=== PATIENT | male | born 1980 | race Hispanic/Latino ===

== ENCOUNTER 2017-12-13 20:01 | Observation (INO) | payer MEDICAID ==
[2017-12-13] MEDS ORDERED: Sodium Chloride 0.9% 2,000 ML IV STA (20:30)
[2017-12-13 20:49] LABS: BASO # 0.1 K/uL (0.0-0.2); BASO % 1.1 % (0.0-2.0); EOS # 0.1 K/uL (0.0-0.7); EOS % 0.9 % (0.0-4.0); HEMOGLOBIN 14.5 g/dL (12.0-18.0); LYMPH % 19.5 % (20.0-40.0); MEAN CORPUSCULAR HEMOGLOBIN 30.6 pg (27.0-31.0); MEAN CORPUSCULAR HGB CONC 33.7 g/dL (33.0-37.0); MEAN PLATELET VOLUME 7.4 fl (7.2-11.7); MONO # 0.5 K/uL (0.0-0.8); MONO % 5.2 % (0.0-10.0); NEUT # 7.5 K/uL (1.8-7.0); NEUT % 73.3 % (50.0-75.0); RBC 4.73 Mil/uL (4.40-5.90); RED CELL DISTRIBUTION WIDTH 13.9 % (11.5-14.5); WHITE BLOOD COUNT 10.2 K/uL (4.8-10.8)
--- NOTE | 2017-12-13 20:51 | ED PDOC ---
HPI: Seizure Time Seen by Provider: 12/13/17 20:14 Chief Complaint (Nursing): Seizure History Per: Patient History/Exam Limitations: no limitations Number Of Seizures: One Length Of Seizures (Duration): Seconds Quality Of Seizure: Generalized Additional History Per: Patient Additional Complaint(s): Hx of ETOH abuse presenting with seizure this morning, shaking, tremors, and decreased appetite. States he has been drinking daily for weeks, last drink was yesterday, states he normally drinks 750mL of vodka in addition to beers. States he's also taking gabapentin and Remeron as prescribed by his psychiatrist. States he went to [facility] this morning, received an IV dose of ativan as well as PO dose and states he was placed in a mcc in [place], but states that after he arrived in [place], he began having worsening of his tremors and felt as though his withdrawal symptoms were returning. Denies other substance usage. States he has not eaten anything in one week nor has he drank fluids. No suicidal or homicidal ideation. States this morning he may have bruised the L side of his face because he feels swelling. PMD: None Past Medical History Reviewed: Historical Data, Nursing Documentation, Vital Signs Vital Signs: Last Vital Signs Temp 98.7 F 12/13/17 20:05 Pulse 120 H 12/13/17 20:28 Resp 18 12/13/17 20:05 BP 132/75 12/13/17 20:28 Pulse Ox 96 12/13/17 20:05 - Medical History PMH: Anxiety, Depression, Seizures - Family History Family History: States: No Known Family Hx - Home Medications Home Medications: Ambulatory Orders Medication Instructions Recorded Baclofen [Lioresal] 10 mg PO BID 12/13/17 Gabapentin [Neurontin] 300 mg PO TID 12/13/17 Mirtazapine [Remeron] 15 mg PO HS 12/13/17 OXcarbazepine [Trileptal] 150 mg PO BID 12/13/17 - Allergies Allergies/Adverse Reactions: Allergies Allergy/AdvReac Type Severity Reaction Status Date / Time amoxicillin Allergy URTICARIA Verified 12/13/17 20:10 Review of Systems ROS Statement: Except As Marked, All Systems Reviewed And Found Negative Neurological: Positive for: Seizures Physical Exam - Reviewed Nursing Documentation Reviewed: Yes Vital Signs Reviewed: Yes - Physical Exam Appears: Positive for: Non-toxic, No Acute Distress. Negative for: Well (Dishev eled appearance) Head Exam: Positive for: ATRAUMATIC, NORMAL INSPECTION, NORMOCEPHALIC Skin: Positive for: Rash (Facial sun-samuels bilaterally) Eye Exam: Positive for: EOMI, Normal appearance, PERRL ENT: Positive for: Other (Tongue fasiculations, voice tremors) Neck: Positive for: Normal, Painless ROM, Supple. Negative for: Decreased ROM Cardiovascular/Chest: Positive for: Regular Rate, Rhythm Respiratory: Positive for: CNT, Normal Breath Sounds Gastrointestinal/Abdominal: Positive for: Normal Exam, Soft. Negative for: Tenderness Back: Positive for: Normal Inspection Extremity: Positive for: Normal ROM Neurologic/Psych: Positive for: Alert, toe pounder II-XII, Oriented, Other (Tremors of extremeties). Negative for: Motor/Sensory Deficits - Laboratory Results Result Diagrams: 12/13/17 20:36 12/13/17 20:36 - ECG ECG Rhythm: Positive for: Normal QRS, Normal ST Segment, Sinus Tachycardia Rate: 115 O2 Sat by Pulse Oximetry: 96 Pulse Ox Interpretation: Normal Medical Decision Making Medical Decision MakinPM Patient presenting with alcohol withdrawal symptoms --Patient currently actively withdrawing, tremulous, tachycardic --Patient profoundly dehydrated as well, will replete fluids, banana bag --Will give short and long acting benzos --Will consider OBS for further seizure activity 10PM --Patient still considerably tachycardic and tremulous --Will place in OBS Tele for further seizure activity and alcohol withdrawal monitoring --Head CT ordered --Case discussed with Dr. Bennett Disposition - Clinical Impression Clinical Impression: Alcohol withdrawal seizure - Patient ED Disposition Is Patient to be Admitted: Yes - Disposition Disposition Time: 21:00 Condition: FAIR
[2017-12-13 20:54] LABS: BLOOD UREA NITROGEN 8 mg/dl (9-20); CALCIUM 8.9 mg/dL (8.4-10.2); GFR NON-AFRICAN AMERICAN > 60
[2017-12-13] MEDS ORDERED: Multivitamin (MVI) 10 ML, Thiamine 100 MG, Folic Acid 1 MG in Sodium Chloride 0.9% 1,00... IV ONE (21:30)
--- NOTE | 2017-12-13 23:22 | CP.PCM.HP ---
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 Pt visited ER at [facility], where pt was administered IV medication and discharged home with PO medication after a few hours. Pt is homeless, came to [facility]; however, his tremors, pressure-like headache, nausea and anxiety have greatly aggravated. Pt reports drinking 750mL of Vodka and beers daily for at least 1 month. Last alcohol intake, last night ~9pm. Pt is aware his symptoms are caused by his alcohol use, he states that he has tried to stop but due to his family issues and homeless status, he always get around the wrong people. Pt also complained of constant left cheek pain but he does not recall any type of injury. Pt does NOT usually have appetite, last meal >1week ago. Pt denies fe cliff, nasal congestion, runny nose, severe constant chest pain, SOB, abdominal pain, diarrhea, dysuria, urinating on himself, LOC, tongue bitten or peripheral edema. -PMD: None -Allergy: Amoxicillin -Meds: None PMHx: denied PSHx: denied FHx: unknown SHx: Denies recreational drug use. Quit smoking 7.5 years ago. Daily alcohol use At ER: --CBC, BMP and Magnessium were unremarkable --Serum alcohol 16, mildly elevated. --Lorazepam 2mg, Librium 50mg --CT head and CT maxillofacial, f/u results --UDS, f/u result. Present on Admission - Present on Admission Any Indicators Present on Admission: No Review of Systems - Constitutional Constitutional: absent: Increased Appetite - EENT Eyes: absent: Discharge, Itchy Eyes, Spots in Vision Ears: absent: Decreased Hearing, Ear Discharge, Tinnitus Nose/Mouth/Throat: absent: Epistaxis, Nasal Congestion, Nasal Trauma, Sore Thr oat - Cardiovascular Cardiovascular: absent: Chest Pain, Claudication, Dyspnea - Respiratory Respiratory: absent: Cough, Dyspnea, Hemoptysis, Chest Congestion - Gastrointestinal Gastrointestinal: Nausea. absent: Abdominal Pain, Cramping, Diarrhea, Dyspepsia - Genitourinary Genitourinary: absent: Change in Urinary Stream, Dysuria, Flank Pain, Hematuria - Musculoskeletal Musculoskeletal: absent: Joint Swelling, Neck Pain, Numbness, Stiffness, Tingling - Neurological Neurological: Headaches, Tremor. absent: Numbness, Focal Weakness, Paresthesias, Tingling Past Patient History - Past Social History Smoking Status: Former Smoker Chewing Tobacco Use: No Alcohol: > 2 Drinks/Day Drugs: Denies Home Situation {Lives}: Homeless - CARDIAC Hx Cardiac Disorders: No - PULMONARY Hx Respiratory Disorders: No - NEUROLOGICAL Hx Seizures: Yes - PSYCHIATRIC Hx Psychophysiologic Disorder: Yes - SURGICAL HISTORY Hx Surgeries: No Meds Allergies/Adverse Reactions: Allergies Allergy/AdvReac Type Severity Reaction Status Date / Time amoxicillin Allergy URTICARIA Verified 12/13/17 20:10 Physical Exam - Constitutional Appears: No Acute Distress, Unkempt - Head Exam Head Exam: NORMOCEPHALIC Additional comments: Face appear to be affected from sunburn. - Eye Exam Eye Exam: EOMI, Normal appearance Pupil Exam: PERRL - ENT Exam ENT Exam: Mucous Membranes Dry - Neck Exam Neck exam: Positive for: Full Rom. Negative for: Meningismus - Respiratory Exam Respiratory Exam: Clear to Auscultation Bilateral, NORMAL BREATHING PATTERN - Cardiovascular Exam Cardiovascular Exam: Tachycardia, +S1, +S2 - GI/Abdominal Exam GI & Abdominal Exam: Soft. absent: Distended, Guarding, Rebound, Rigid, Tenderness - Extremities Exam Extremities exam: Positive for: full ROM, pedal pulses present. Negative for: calf tenderness, joint swelling - Back Exam Back exam: absent: CVA tenderness (L), CVA tenderness (R) - Neurological Exam Neurological exam: Alert, CN II-XII Intact (grossly), Oriented x3 Results - Vital Signs Recent Vital Signs: Last Vital Signs Temp 98.7 F 12/13/17 22:08 Pulse 115 H 12/13/17 22:30 Resp 18 12/13/17 22:30 BP 132/70 12/13/17 22:30 Pulse Ox 96 12/13/17 22:12 - Labs Result Diagrams: 12/13/17 20:36 12/13/17 20:36 Labs: Laboratory Results - last 24 hr 12/13/17 12/13/17 20:36 20:36 WBC 10.2 RBC 4.73 Hgb 14.5 Hct 43.0 MCV 91.0 MCH 30.6 MCHC 33.7 RDW 13.9 Plt Count 254 MPV 7.4 Neut % (Auto) 73.3 Lymph % (Auto) 19.5 L Jess[place] % (Auto) 5.2 Eos % (Auto) 0.9 Baso % (Auto) 1.1 Neut # (Auto) 7.5 H Lymph # (Auto) 2.0 Jessamine # (Auto) 0.5 Eos # (Auto) 0.1 Baso # (Auto) 0.1 Sodium 141 Potassium 4.1 Chloride 107 Carbon Dioxide 21 L Anion Gap 17 BUN 8 L Creatinine 0.6 L Est GFR ( Amer) > 60 Est GFR (Non-Af Amer) > 60 Random Glucose 83 Calcium 8.9 Magnesium 1.8 Alcohol, Quantitative 16 H Assessment & Plan - Assessment and Plan (Free Text) Assessment: 37 y/o M with a PMHx of alcohol use disorder is admitted for evaluation and management of alcohol withdrawal syndrome. 1. Alcohol withdrawal syndrome --CIWA score ~15 --Continue with Banana bag --Librium 50mg Q6H --Zofran Q4H PRN --Lorazepam 1mg Q3H PRN --IV fluids: D5-0.45NS at 125mL/hr. --Daily Folic acid 1mg, vitamin B1 and Multivitamin --Haloperidol 5mg IM Q6 PRN, Lorazepam 2mg Q6H PRN for seizure acitivity and/or agitation. --F/u PTT, INR, UDS --Vital signs Q8H, CIWA assessment PRN. 2. ?Head trauma vs ?Fall --F/U final reports from Head CT and CT maxillofacial --F/U chest X-ray 3. Tachycardia, sinus --Most possibly due to alcohol withdrawal --Cardiac monitoring --F/U EKG. 4. Prophylaxis --Enoxaparin 40mg SC daily 5. Code --Full - Date & Time Date: 12/13/17 Time: 23:22 <Deion Bennett - Last Filed: 12/14/17 03:06> Results - Vital Signs Recent Vital Signs: Last Vital Signs Temp 98.5 F 12/14/17 00:31 Pulse 106 H 12/14/17 00:31 Resp 20 10/15/18 00:31 BP 127/78 12/14/17 00:31 Pulse Ox 97 12/14/17 00:31 - Labs Result Diagrams: 12/13/17 20:36 12/13/17 20:36 Labs: Laboratory Results - last 24 hr 12/13/17 12/13/17 20:36 20:36 WBC 10.2 RBC 4.73 Hgb 14.5 Hct 43.0 MCV 91.0 MCH 30.6 MCHC 33.7 RDW 13.9 Plt Count 254 MPV 7.4 Neut % (Auto) 73.3 Lymph % (Auto) 19.5 L Jess[place] % (Auto) 5.2 Eos % (Auto) 0.9 Baso % (Auto) 1.1 Neut # (Auto) 7.5 H Lymph # (Auto) 2.0 Jess[place] # (Auto) 0.5 Eos # (Auto) 0.1 Baso # (Auto) 0.1 Sodium 141 Potassium 4.1 Chloride 107 Carbon Dioxide 21 L Anion Gap 17 BUN 8 L Creatinine 0.6 L Est GFR ( Amer) > 60 Est GFR (Non-Af Amer) > 60 Random Glucose 83 Calcium 8.9 Magnesium 1.8 Alcohol, Quantitative 16 H Attending/Attestation - Attestation I have personally seen and examined this patient.: Yes I have fully participated in the care of the patient.: Yes I have reviewed all pertinent clinical information: Yes Notes (Text): 12/14/17 02:55 I saw, examined and discussed this patient with Dr Kirkland. I Agree with the assessment and plan outlined, which represent my direct input. This is a 37 years old male Alcoholic who was seen at the [facility] earlier, treated and discharged. He came to the [place] [facility] with tremors, feeling shaky and pain to the left face after a witnessed seizure. He is being admitted with Alcohol Withdrawal and Alcohol related Seizure. He is being treated with IV fluids, scheduled Librium, Ativan for seizure and agitation, Thiamine, Folic Acid, and multivitamin, with Haldol for Delirium. he will be transferred to the ICU if worsened signs of Withdrawal. Deion Bennett MD
[2017-12-14] MEDS: Dextrose 5%/0.45% NS 1,000 ML IV SCH ×3 (01:30→16:43)
[2017-12-14 08:33] LABS: PROTHROMBIN TIME 11.2 Seconds (9.8-13.1)
--- NOTE | 2017-12-14 09:01 | CP.PCM.PN ---
<Vasu Jinson - Last Filed: 12/14/17 08:46> Subjective - Date & Time of Evaluation Date of Evaluation: 12/14/17 Time of Evaluation: 08:46 - Subjective Subjective: 37 yo male seen and evaluated at bedside with Dr. Shelton. Patient is still going through withdrawal symptoms. Complains today of new chest pain that he has not felt before. States that he has pain when he inhales. Denies shortness of breath just pain on inhalation. Denies any pain or discomfort in lower extremities including calves. States he has no appetite and has not been able to eat anything since he arrived, "not eaten in 7 days". States he is still feeling anxious and feels like he fell on his face at some point. Denies N/V, reports some chills and tremor in hands. CIWA still about a 15, due for librium dose Objective - Vital Signs/Intake and Output Vital Signs (last 24 hours): Temp Pulse Resp BP Pulse Ox 97.7 F 92 H 20 130/87 96 12/14/17 08:17 12/14/17 08:17 12/14/17 08:17 12/14/17 08:17 12/14/17 08:17 - Medications Medications: Current Medications Chlordiazepoxide (Librium) 50 mg PO Q6 [facility] Last Admin: 12/14/17 03:26 Dose: 50 mg Enoxaparin Sodium (Lovenox) 40 mg SC DAILY [facility]; Protocol Folic Acid (Folic Acid) 1 mg PO DAILY [facility] Haloperidol Lactate (Haldol) 5 mg IM Q6 PRN PRN Reason: Psychosis Dextrose/Sodium Chloride (Dextrose 5%/0.45% Ns 1000 Ml) 1,000 mls @ 125 mls/hr IV .Q8H [facility] Stop: 12/15/17 00:26 Last Admin: 12/14/17 01:30 Dose: Not Given Lorazepam (Ativan) 2 mg IVP Q6H PRN PRN Reason: Seizure activity Lorazepam (Ativan) 1 mg IVP Q3H PRN PRN Reason: Symptoms of alcohol withdrawl Last Admin: 12/14/17 01:36 Dose: 1 mg Multivitamins/Minerals (Therapeutic-M Tab) 1 tab PO DAILY [facility] Ondansetron HCl (Zofran Inj) 4 mg IVP Q4 PRN PRN Reason: Nausea/Vomiting Thiamine HCl (Vitamin B1 Tab) 100 mg PO DAILY [facility] - Labs Labs: 12/13/17 20:36 12/13/17 20:36 PT 11.2 Seconds (9.8-13.1) 12/14/17 07:30 INR 1.0 12/14/17 07:30 APTT 29.0 Seconds (25.6-37.1) 12/14/17 07:30 - Constitutional Appears: Non-toxic - ENT Exam ENT Exam: Mucous Membranes Moist - Respiratory Exam Additional comments: Mild wheeze on expiration on right examination Normal examination otherwise - Cardiovascular Exam Cardiovascular Exam: Tachycardia, +S1, +S2 - GI/Abdominal Exam GI & Abdominal Exam: Soft - Extremities Exam Extremities Exam: Full ROM, Normal Capillary Refill. absent: Calf Tenderness, Joint Swelling - Neurological Exam Neurological Exam: Alert, Awake, Oriented x3 - Psychiatric Exam Psychiatric exam: Anxious - Skin Skin Exam: Warm Additional comments: Face is mildly swollen and flush Assessment and Plan - Assessment and Plan (Free Text) Assessment: 37 y/o M seen and examined for evaluation and management of alcohol withdrawal syndrome. Plan: 1. Alcohol withdrawal syndrome --CIWA score ~15 --Continue with Banana bag --Librium 50mg Q6H --Zofran Q4H PRN --Lorazepam 1mg Q3H PRN --IV fluids: D5-0.45NS at 125mL/hr. --Daily Folic acid 1mg, vitamin B1 and Multivitamin --Haloperidol 5mg IM Q6 PRN, Lorazepam 2mg Q6H PRN for seizure acitivity and/or agitation. --PT 11.2, INR 1.0, PTT 29.0 - wnl --Vital signs Q8H, CIWA assessment PRN. 2. Chest pain r/o ACS --EKG stat f/u --Troponin I stat f/u --no pain in calves or lower extremity 3. ?Head trauma vs ?Fall --F/U final reports from Head CT and CT maxillofacial - taken not read --F/U chest X-ray - taken not read 4. Tachycardia, sinus --Most possibly due to alcohol withdrawal --Cardiac monitoring --F/U EKG. 5. Prophylaxis --Enoxaparin 40mg SC daily 6. Code --Full <Dee Shelton - Last Filed: 12/14/17 17:27> Objective - Vital Signs/Intake and Output Vital Signs (last 24 hours): Temp Pulse Resp BP Pulse Ox 98.6 F 99 H 16 126/85 95 12/14/17 16:31 18 16:31 12/14/17 16:31 12/14/17 16:31 12/14/17 16:31 - Medications Medications: Current Medications Chlordiazepoxide (Librium) 50 mg PO Q6 [facility] Last Admin: 12/14/17 16:42 Dose: 50 mg Enoxaparin Sodium (Lovenox) 40 mg SC DAILY [facility]; Protocol Last Admin: 12/14/17 09:42 Dose: 40 mg Folic Acid (Folic Acid) 1 mg PO DAILY [facility] Last Admin: 12/14/17 09:42 Dose: 1 mg Haloperidol Lactate (Haldol) 5 mg IM Q6 PRN PRN Reason: Psychosis Dextrose/Sodium Chloride (Dextrose 5%/0.45% Ns 1000 Ml) 1,000 mls @ 125 mls/hr IV .Q8H [facility] Stop: 12/15/17 00:26 Last Admin: 12/14/17 16:43 Dose: 125 mls/hr Lorazepam (Ativan) 2 mg IVP Q6H PRN PRN Reason: Seizure activity Lorazepam (Ativan) 1 mg IVP Q3H PRN PRN Reason: Symptoms of alcohol withdrawl Last Admin: 12/14/17 09:41 Dose: 1 mg Multivitamins/Minerals (Therapeutic-M Tab) 1 tab PO DAILY [facility] Last Admin: 12/14/17 09:42 Dose: 1 tab Ondansetron HCl (Zofran Inj) 4 mg IVP Q4 PRN PRN Reason: Nausea/Vomiting Thiamine HCl (Vitamin B1 Tab) 100 mg PO DAILY [facility] Last Admin: 12/14/17 09:42 Dose: 100 mg - Labs Labs: 12/13/17 20:36 12/13/17 20:36 PT 11.2 Seconds (9.8-13.1) 12/14/17 07:30 INR 1.0 12/14/17 07:30 APTT 29.0 Seconds (25.6-37.1) 12/14/17 07:30 Attending/Attestation - Attestation I have personally seen and examined this patient.: Yes I have fully participated in the care of the patient.: Yes I have reviewed all pertinent clinical information, including history, physical exam and plan: Yes Notes (Text): Alcohol Withdrawal - cont Librium - cont Thiamine Chest Pain -EKG done - noc hange from previous - Troponin
[2017-12-14] MEDS: Multivitamin With Minerals Tab PO SCH (09:42)
[2017-12-14] MEDS: Enoxaparin 40 mg Syringe SC SCH (09:42)
--- NOTE | 2017-12-14 10:28 | RAD ---
Date of service: 12/13/2017 PROCEDURE: CHEST RADIOGRAPH, 1 VIEW HISTORY: seizure, withdrawal COMPARISON: None available. FINDINGS: LUNGS: No interval pulmonary disease appreciated bilaterally. PLEURA: No pneumothorax or pleural fluid seen. CARDIOVASCULAR: Normal. OSSEOUS STRUCTURES: No significant abnormalities. VISUALIZED UPPER ABDOMEN: Normal. OTHER FINDINGS: None. IMPRESSION: No acute cardiopulmonary disease appreciated.
--- NOTE | 2017-12-14 11:31 | CT ---
Date of service: 12/13/2017 PROCEDURE: CT HEAD WITHOUT CONTRAST. HISTORY: seizure, head trauma COMPARISON: None available. TECHNIQUE: Axial computed tomography images were obtained through the head/brain without intravenous contrast. Radiation dose: Total exam DLP = 799.91 mGy-cm. This CT exam was performed using one or more of the following dose reduction techniques: Automated exposure control, adjustment of the mA and/or kV according to patient size, and/or use of iterative reconstruction technique. FINDINGS: HEMORRHAGE: No intracranial hemorrhage. BRAIN: Normal king-white matter differentiation and density are appreciated throughout the cerebrum and cerebellum with the brainstem appearing unremarkable as well. There is no mass effect. There is no suspicious extra-axial fluid collection and the midline brain anatomy appears diffusely unremarkable. VENTRICLES: Unremarkable. No hydrocephalus. CALVARIUM: No destructive bony lesion or displaced fracture identified including through the skullbase. PARANASAL SINUSES: Unremarkable as visualized. No significant inflammatory changes. MASTOID AIR CELLS: Unremarkable as visualized. No inflammatory changes. OTHER FINDINGS: None. IMPRESSION: Unremarkable noncontrast CT of the Head. Concordant preliminary report from [facility], 12/13/2017.
--- NOTE | 2017-12-14 11:33 | CT ---
Date of service: 12/13/2017 PROCEDURE: CT MAXILLOFACIAL BONES WITHOUT CONTRAST HISTORY: seizure, head trauma COMPARISON: None available. TECHNIQUE: Contiguous axial CT images of the maxillofacial bones were obtained. Coronal and sagittal reformats were generated. Radiation dose: Total exam DLP = 846.89 mGy-cm. This CT exam was performed using one or more of the following dose reduction techniques: Automated exposure control, adjustment of the mA and/or kV according to patient size, and/or use of iterative reconstruction technique. FINDINGS: NASAL BONES: Unremarkable. ORBITS: Unremarkable. PARANASAL SINUSES/ MASTOIDS: Minimal bilateral maxillary retention cysts or polyps. MAXILLA: Unremarkable. MANDIBLE/ TEMPOROMANDIBULAR JOINTS: Unremarkable. SKULL BASE: Unremarkable. TEMPORAL BONES: Middle ears and mastoid grossly unremarkable. OTHER FINDINGS: None. IMPRESSION: No fracture or destructive bony lesion appreciated in non contrast enhanced CT of the maxillofacial bones. Incidental limited bilateral maxillary sinus disease identified as discussed above. Concordant preliminary report from [facility], 12/13/2017.
--- NOTE | 2017-12-14 15:00 | CARD ---
APPROVED REPORT Date of service: 12/13/2017 EKG Measurement Heart [id number] <Conclusion> Sinus tachycardia Otherwise normal ECG
--- NOTE | 2017-12-14 15:13 | CARD ---
APPROVED REPORT Date of service: 12/14/2017 EKG Measurement Heart [id number] <Conclusion> Normal sinus rhythm Normal ECG
[2017-12-14 18:31] LABS: URINE BILIRUBIN NEGATIVE (NEGATIVE); URINE BLOOD NEGATIVE (NEGATIVE); URINE CLARITY CLEAR (Clear); URINE COLOR STRAW (YELLOW); URINE GLUCOSE (UA) NEG (Normal); URINE LEUKOCYTE ESTERASE NEG Leu/uL (Negative); URINE PROTEIN NEGATIVE (NEGATIVE); URINE UROBILINOGEN 0.2-1.0 mg/dL (0.2-1.0)
[2017-12-14 18:45] LABS: BENZODIAZEPINES, UR NEGATIVE (NEGATIVE)
[2017-12-14] MEDS: Pantoprazole 40 mg EC Tab PO SCH (18:45)
[2017-12-14 19:00] LABS: BARBITURATES, UR NEGATIVE (NEGATIVE); OPIATES, UR NEGATIVE (NEGATIVE); PHENCYCLIDINE, UR NEGATIVE (NEGATIVE)
[2017-12-15 05:11] VITALS: O2SAT 96
[2017-12-15 08:30] VITALS: BP 122/78; PULSE 83; RESP 20; TEMP 97.5
[2017-12-15 09:02] LABS: ALB/GLOB RATIO 1.1 (1.0-2.1); ALBUMIN 4.3 g/dL (3.5-5.0); ALT/SGPT 52 U/L (21-72); AST/SGOT 53 U/L (17-59); BLOOD UREA NITROGEN 6 mg/dl (9-20); CALCIUM 9.3 mg/dL (8.4-10.2); GFR NON-AFRICAN AMERICAN > 60
[2017-12-15] MEDS: Multivitamin With Minerals Tab PO SCH (09:58)
[2017-12-15] MEDS: Pantoprazole 40 mg EC Tab PO SCH (09:59)
[2017-12-15] MEDS: Enoxaparin 40 mg Syringe SC SCH (10:00)
--- NOTE | 2017-12-15 10:45 | CP.PCM.DIS ---
<Cayetano Jin - Last Filed: 12/15/17 10:42> Provider - Provider Date of Admission: 12/13/17 21:23 Attending physician: Deion Bennett Primary care physician: None Consults: None Time Spent in preparation of Discharge (in minutes): 30 Diagnosis - Discharge Diagnosis (1) Alcohol withdrawal seizure Status: Acute Hospital Course - Lab Results Lab Results: Most Recent Lab Values WBC 10.2 K/uL (4.8-10.8) 12/13/17 20:36 RBC 4.73 Mil/uL (4.40-5.90) 12/13/17 20:36 Hgb 14.5 g/dL (12.0-18.0) 12/13/17 20:36 Hct 43.0 % (35.0-51.0) 12/13/17 20:36 MCV 91.0 fl (80.0-94.0) 12/13/17 20:36 MCH 30.6 pg (27.0-31.0) 12/13/17 20:36 MCHC 33.7 g/dL (33.0-37.0) 12/13/17 20:36 RDW 13.9 % (11.5-14.5) 12/13/17 20:36 Plt Count 254 K/uL (130-400) 12/13/17 20:36 MPV 7.4 fl (7.2-11.7) 12/13/17 20:36 Neut % (Auto) 73.3 % (50.0-75.0) 12/13/17 20:36 Lymph % (Auto) 19.5 % (20.0-40.0) L 12/13/17 20:36 Luce % (Auto) 5.2 % (0.0-10.0) 12/13/17 20:36 Eos % (Auto) 0.9 % (0.0-4.0) 12/13/17 20:36 Baso % (Auto) 1.1 % (0.0-2.0) 12/13/17 20:36 Neut # (Auto) 7.5 K/uL (1.8-7.0) H 12/13/17 20:36 Lymph # (Auto) 2.0 K/uL (1.0-4.3) 12/13/17 20:36 Luce # (Auto) 0.5 K/uL (0.0-0.8) 12/13/17 20:36 Eos # (Auto) 0.1 K/uL (0.0-0.7) 12/13/17 20:36 Baso # (Auto) 0.1 K/uL (0.0-0.2) 12/13/17 20:36 PT 11.2 Seconds (9.8-13.1) 12/14/17 07:30 INR 1.0 12/14/17 07:30 APTT 29.0 Seconds (25.6-37.1) 12/14/17 07:30 Sodium 139 mmol/l (132-148) 12/15/17 08:28 Potassium 3.7 MMOL/L (3.6-5.0) 12/15/17 08:28 Chloride 105 mmol/L (98-107) 12/15/17 08:28 Carbon Dioxide 27 mmol/L (22-30) 12/15/17 08:28 Anion Gap 11 (10-20) 12/15/17 08:28 BUN 6 mg/dl (9-20) L 12/15/17 08:28 Creatinine 0.6 mg/dl (0.8-1.5) L 12/15/17 08:28 Est GFR ( Amer) > 60 12/15/17 08:28 Est GFR (Non-Af Amer) > 60 12/15/17 08:28 Random Glucose 101 mg/dL (75-110) 12/15/17 08:28 Calcium 9.3 mg/dL (8.4-10.2) 12/15/17 08:28 Magnesium 1.8 MG/DL (1.6-2.3) 12/13/17 20:36 Total Bilirubin 1.1 mg/dl (0.2-1.3) 12/15/17 08:28 AST 53 U/L (17-59) 12/15/17 08:28 ALT 52 U/L (21-72) 12/15/17 08:28 Alkaline Phosphatase 60 U/L (38-126) 12/15/17 08:28 Troponin I < 0.0120 ng/mL (0.00-0.120) 12/14/17 10:10 Total Protein 8.0 G/DL (6.3-8.2) 12/15/17 08:28 Albumin 4.3 g/dL (3.5-5.0) 12/15/17 08:28 Globulin 3.7 gm/dL (2.2-3.9) 12/15/17 08:28 Albumin/Globulin Ratio 1.1 (1.0-2.1) 12/15/17 08:28 Urine Color Straw (YELLOW) 12/14/17 18:22 Urine Clarity Clear (Clear) 12/14/17 18: Urine pH 6.0 (5.0-8.0) 12/14/17 18:22 Ur Specific [place] < 1.005 (1.003-1.030) 12/14/17 18: Urine Protein Negative mg/dL (NEGATIVE) 12/14/17 18: Urine Glucose (UA) Neg mg/dL (Normal) 12/14/17 18: Urine Ketones Trace mg/dL (NEGATIVE) 12/14/17 18: Urine Blood Negative (NEGATIVE) 12/14/17 18:22 Urine Nitrate Negative (NEGATIVE) 12/14/17 18:22 Urine Bilirubin Negative (NEGATIVE) 12/14/17 18:22 Urine Urobilinogen 0.2-1.0 mg/dL (0.2-1.0) 12/14/17 18:22 Ur Leukocyte Esterase Neg Catherine/uL (Negative) 12/14/17 18:22 Urine Opiates Screen Negative (NEGATIVE) 12/13/17 18:22 Urine Methadone Screen Negative (NEGATIVE) 12/13/17 18:22 Ur Barbiturates Screen Negative (NEGATIVE) 12/13/17 18:22 Ur Phencyclidine Scrn Negative (NEGATIVE) 12/13/17 18:22 Ur Amphetamines Screen Negative (NEGATIVE) 12/13/17 18:22 U Benzodiazepines Scrn Negative (NEGATIVE) 12/13/17 18:22 U Oth Cocaine Metabols Negative (NEGATIVE) 12/13/17 18: U Cannabinoids Screen Negative (NEGATIVE) 12/13/17 18:22 Alcohol, Quantitative 16 mg/dl (0-10) H 12/13/17 20:36 - Hospital Course Hospital Course: 37 yo male with pmhx of alcohol use disorder presented to ED on 12/13/17 for seizure like episode, tremors in hands and arms, and nausea. Had presented to [facility] where he was discharged and placed in [place] half-way where he had his seizure-like episode. He was admitted for withdrawal syndrome with a CIWA score of 15. He was ordered Librium 50mg Q6hrs, zofran Q4hrs, lorazepam 1mg Q3hrs PRN and placed on IV fluids. He was given daily folic acid, B12, and multivitamin. He was ordered haloperidol and lorazepam PRN for seizure activity and/or agitation. Head CT and maxillofacial CT were ordered as patient did not know if he fell and felt his face swollen which were both negative. CXR was negative for acute cardiopulmonary disease. He was tachycardic and monitored, EKGs showed normal sinus rhythm. Seen by PT and deemed stable to ambulate on his own without assistance. Patient is stable for discharge and will be sent with presription for librium, folic acid, folic acid, and thiamine. - Date & Time of H&P Date of H&P: 12/15/17 Time of H&P: 10:44 Discharge Exam - Head Exam Head Exam: NORMOCEPHALIC - Eye Exam Eye Exam: EOMI, Normal appearance, PERRL - ENT Exam ENT Exam: Mucous Membranes Moist - Neck Exam Neck exam: Full Rom - Respiratory Exam Respiratory Exam: Clear to PA & Lateral, NORMAL BREATHING PATTERN - Cardiovascular Exam Cardiovascular Exam: REGULAR RHYTHM, +S1, +S2 - GI/Abdominal Exam GI & Abdominal Exam: Normal Bowel Sounds, Soft. absent: Tenderness - Extremities Exam Extremities exam: full ROM, normal capillary refill, pedal pulses present - Neurological Exam Neurological exam: Alert, Oriented x3 - Psychiatric Exam Psychiatric exam: Normal Affect, Normal Mood - Skin Skin Exam: Dry, Intact, Warm Discharge Plan - Discharge Medications Prescriptions: chlordiazePOXIDE [Chlordiazepoxide HCl] 10 mg PO Q6 #10 cap Folic Acid 1 mg PO DAILY #30 tab Pantoprazole [Protonix EC Tab] 40 mg PO DAILY #30 ect Thiamine [Vitamin B1 Tab] 100 mg PO DAILY #30 tab - Follow Up Plan Condition: FAIR Disposition: HOME/ ROUTINE Instructions: Alcohol Withdrawal Additional Instructions: appt with PMD jeanine appt with Psych jeanine Abstain from Alcohol Alcohol REhab referral Clinical Quality Measures - Date & Time of Discharge Summary Date of Discharge Summary: 12/15/17 Time of Discharge Summary: 10:50 <Dee Shelton - Last Filed: 12/15/17 14:39> Provider - Provider Date of Admission: 12/13/17 21:23 Attending physician: Deion Bennett [facility] Course - Lab Results Lab Results: Most Recent Lab Values WBC 10.2 K/uL (4.8-10.8) 12/13/17 20:36 RBC 4.73 Mil/uL (4.40-5.90) 12/13/17 20:36 Hgb 14.5 g/dL (12.0-18.0) 12/13/17 20:36 Hct 43.0 % (35.0-51.0) 12/13/17 20:36 MCV 91.0 fl (80.0-94.0) 12/13/17 20:36 MCH 30.6 pg (27.0-31.0) 12/13/17 20:36 MCHC 33.7 g/dL (33.0-37.0) 12/13/17 20:36 RDW 13.9 % (11.5-14.5) 12/13/17 20:36 Plt Count 254 K/uL (130-400) 12/13/17 20:36 MPV 7.4 fl (7.2-11.7) 12/13/17 20:36 Neut % (Auto) 73.3 % (50.0-75.0) 12/13/17 20:36 Lymph % (Auto) 19.5 % (20.0-40.0) L 12/13/17 20:36 Luce % (Auto) 5.2 % (0.0-10.0) 12/13/17 20:36 Eos % (Auto) 0.9 % (0.0-4.0) 12/13/17 20:36 Baso % (Auto) 1.1 % (0.0-2.0) 12/13/17 20:36 Neut # (Auto) 7.5 K/uL (1.8-7.0) H 12/13/17 20:36 Lymph # (Auto) 2.0 K/uL (1.0-4.3) 12/13/17 20:36 Luce # (Auto) 0.5 K/uL (0.0-0.8) 12/13/17 20:36 Eos # (Auto) 0.1 K/uL (0.0-0.7) 12/13/17 20:36 Baso # (Auto) 0.1 K/uL (0.0-0.2) 12/13/17 20:36 PT 11.2 Seconds (9.8-13.1) 12/14/17 07:30 INR 1.0 12/14/17 07:30 APTT 29.0 Seconds (25.6-37.1) 12/14/17 07:30 Sodium 139 mmol/l (132-148) 12/15/17 08:28 Potassium 3.7 MMOL/L (3.6-5.0) 12/15/17 08:28 Chloride 105 mmol/L (98-107) 12/15/17 08:28 Carbon Dioxide 27 mmol/L (22-30) 12/15/17 08:28 Anion Gap 11 (10-20) 12/15/17 08:28 BUN 6 mg/dl (9-20) L 12/15/17 08:28 Creatinine 0.6 mg/dl (0.8-1.5) L 12/15/17 08:28 Est GFR ( Amer) > 60 12/15/17 08:28 Est GFR (Non-Af Amer) > 60 12/15/17 08:28 Random Glucose 101 mg/dL (75-110) 12/15/17 08:28 Calcium 9.3 mg/dL (8.4-10.2) 12/15/17 08:28 Magnesium 1.8 MG/DL (1.6-2.3) 12/13/17 20:36 Total Bilirubin 1.1 mg/dl (0.2-1.3) 12/15/17 08:28 AST 53 U/L (17-59) 12/15/17 08:28 ALT 52 U/L (21-72) 12/15/17 08:28 Alkaline Phosphatase 60 U/L (38-126) 12/15/17 08:28 Troponin I < 0.0120 ng/mL (0.00-0.120) 12/14/17 10:10 Total Protein 8.0 G/DL (6.3-8.2) 12/15/17 08:28 Albumin 4.3 g/dL (3.5-5.0) 12/15/17 08:28 Globulin 3.7 gm/dL (2.2-3.9) 12/15/17 08:28 Albumin/Globulin Ratio 1.1 (1.0-2.1) 12/15/17 08:28 Urine Color Straw (YELLOW) 12/14/17 18:22 Urine Clarity Clear (Clear) 12/14/17 18: Urine pH 6.0 (5.0-8.0) 12/14/17 18:22 Ur Specific [place] < 1.005 (1.003-1.030) 12/14/17 18:22 Urine Protein Negative mg/dL (NEGATIVE) 12/14/17 18:22 Urine Glucose (UA) Neg mg/dL (Normal) 12/14/17 18: Urine Ketones Trace mg/dL (NEGATIVE) 12/14/17 18:22 Urine Blood Negative (NEGATIVE) 12/14/17 18:22 Urine Nitrate Negative (NEGATIVE) 12/14/17 18: Urine Bilirubin Negative (NEGATIVE) 12/14/17 18:22 Urine Urobilinogen 0.2-1.0 mg/dL (0.2-1.0) 12/14/17 18:22 Ur Leukocyte Esterase Neg Catherine/uL (Negative) 12/14/17 18:22 Urine Opiates Screen Negative (NEGATIVE) 12/13/17 18:22 Urine Methadone Screen Negative (NEGATIVE) 12/13/17 18:22 Ur Barbiturates Screen Negative (NEGATIVE) 12/13/17 18:22 Ur Phencyclidine Scrn Negative (NEGATIVE) 12/13/17 18:22 Ur Amphetamines Screen Negative (NEGATIVE) 12/13/17 18:22 U Benzodiazepines Scrn Negative (NEGATIVE) 12/13/17 18:22 U Oth Cocaine Metabols Negative (NEGATIVE) 12/13/17 18:22 U Cannabinoids Screen Negative (NEGATIVE) 12/13/17 18:22 Alcohol, Quantitative 16 mg/dl (0-10) H 12/13/17 20:36 Attending/Attestation - Attestation I have personally seen and examined this patient.: Yes I have fully participated in the care of the patient.: Yes I have reviewed all pertinent clinical information, including history, physical exam and plan: Yes Notes (Text): Pt has been ambulating in the Unit. Alert, oriented x 3. Was seen by Physical Therapy - no PT recommendation. Stable for discharge. Counseled regarding Alcohol abuse. Referral to AA
== END 2017-12-15 11:00 | disposition home or self-care (01) ==
LOC: H.ER 20:01 → H.ERHOLD 21:23 → H.TEL 22:56
PROVIDERS: ADMIT Internal Medicine; ATTEND Internal Medicine
DX: R56.9 Unspecified convulsions (principal); F10.239 Alcohol dependence with withdrawal, unspecified; Z59.0 Homelessness; Z87.891 Personal history of nicotine dependence; F32.9 Major depressive disorder, single episode, unspecified; Z79.899 Other long term (current) drug therapy; R00.0 Tachycardia, unspecified; R07.9 Chest pain, unspecified; E86.0 Dehydration; F41.9 Anxiety disorder, unspecified
CPT/HCPCS: 36415; 70450; 70486; 71045; 80048; 80053; 80320; 80324; 80345; 80346; 80349; 80353; 80358; 80361; 81003; 83735; 83992; 84484; 85025; 85610; 85730; 93005; 96360; 96361; 97161; 99285; G0378; G8978; G8979; J1650; J2060; J3411; J7030; J7042

== ENCOUNTER 2018-02-19 20:15 | Inpatient (IN) | payer MEDICAID ==
--- NOTE | 2018-02-19 22:54 | ED PDOC ---
HPI: Psych/Substance Abuse Time Seen by Provider: 02/19/18 21:12 Chief Complaint (Nursing): Psychiatric Evaluation Chief Complaint (Provider): Psychiatric Evaluation History Per: Patient History/Exam Limitations: no limitations Onset/Duration Of Symptoms: Days Current Symptoms Are (Timing): Still Present Suicide/Self Injury Attempted (Context): Other (Hanging Himself) Modifying Factor(s): Alcohol Additional Complaint(s): 37 y/o male with a PMHx of Bipolar disorder and Depression presents to the ED for psychiatric evaluation. Patient reports of suicidal ideation after stopping his medications on Thursday. When asked why he stopped then, patient states he "didn't want to take them anymore". Since stopping medications, patient has had increasingly suicidal ideations. Patient states he wants to hang himself on [address] because that is when his brother committed suicide. Patient also reports his father committed suicide and was an alcoholic. Patient states alcoholism runs in the family. Patient admits to alcohol use. Otherwise denies any drug use and any medical complaints. Of note, patient is homeless. PMD: none Past Medical History Reviewed: Historical Data, Nursing Documentation, Vital Signs Vital Signs: Last Vital Signs Temp 98.1 F 02/19/18 21:04 Pulse 109 H 02/19/18 21:04 Resp 20 02/19/18 21:04 BP 132/87 02/19/18 21:04 Pulse Ox 95 02/19/18 21:04 - Medical History PMH: Anxiety, Bipolar Disorder, Depression, Seizures Denies: Chronic Kidney Disease - Surgical History Surgical History: No Surg Hx - Family History Family History: States: Other Other Family History: Alcoholism - Living Arrangements Living Arrangements: Other (Homeless) - Social History Alcohol: > 2 Drinks/Day - Home Medications Home Medications: Ambulatory Orders Medication Instructions Recorded Baclofen [Lioresal] 10 mg PO BID 12/13/17 Gabapentin [Neurontin] 300 mg PO TID 12/13/17 Mirtazapine [Remeron] 15 mg PO HS 12/13/17 OXcarbazepine [Trileptal] 150 mg PO BID 12/13/17 Folic Acid 1 mg PO DAILY #30 tab 12/15/17 Multimineral/Multivitamin 1 tab PO DAILY #30 tab 12/15/17 [Therapeutic-M Tab] Pantoprazole [Protonix EC Tab] 40 mg PO DAILY #30 ect 10/16/18 Thiamine [Vitamin B1 Tab] 100 mg PO DAILY #30 tab 12/15/17 chlordiazePOXIDE [Chlordiazepoxide 10 mg PO Q6 #10 cap 12/15/17 HCl] - Allergies Allergies/Adverse Reactions: Allergies Allergy/AdvReac Type Severity Reaction Status Date / Time amoxicillin Allergy URTICARIA Verified 02/19/18 21:04 Review of Systems ROS Statement: Except As Marked, All Systems Reviewed And Found Negative Psych: Positive for: Suicidal ideation Physical Exam - Reviewed Nursing Documentation Reviewed: Yes Vital Signs Reviewed: Yes - Physical Exam Appears: Positive for: Non-toxic, No Acute Distress Head Exam: Positive for: ATRAUMATIC, NORMOCEPHALIC Skin: Positive for: Warm, Dry Eye Exam: Positive for: EOMI, PERRL ENT: Negative for: Pharyngeal Erythema, Tonsillar Exudate Neck: Positive for: Painless ROM, Supple Cardiovascular/Chest: Positive for: Regular Rate, Rhythm. Negative for: Murmur Respiratory: Positive for: Normal Breath Sounds. Negative for: Respiratory Distress Gastrointestinal/Abdominal: Positive for: Soft. Negative for: Tenderness Back: Positive for: Normal Inspection. Negative for: Muscle Spasm Extremity: Positive for: Normal ROM. Negative for: Deformity Lymphatic: Negative for: Adenopathy Neurologic/Psych: Positive for: Alert, Oriented, Mood/Affect (Depressed Mood/Affect) - Laboratory Results Result Diagrams: 02/19/18 22:10 02/19/18 22:10 - ECG O2 Sat by Pulse Oximetry: 95 (RA) Pulse Ox Interpretation: Normal Medical Decision Making Medical Decision Making: Time: 2145 Impression: Depression Plan: -- Acetaminophen -- Alcohol serum -- CMP -- Urine Drug Screen -- Salicylate -- Crisis Evaluation as Ordered -- ED Urine Dipstick -- CBC with Differentials -- 1:1 Observation Medically stable for psych admission Scribe Attestation: Documented by Kevin Hameed, acting as a scribe for Nichole Miranda MD. Provider Scribe Attestation: All medical record entries made by the Scribe were at my direction and personally dictated by me. I have reviewed the chart and agree that the record accurately reflects my personal performance of the history, physical exam, medical decision making, and the department course for this patient. I have also personally directed, reviewed, and agree with the discharge instructions and disposition. Disposition - Clinical Impression Clinical Impression: Alcohol use disorder, Depression - Disposition Disposition Time: 00:39 Condition: STABLE Forms: [employer] (Swedish) - Pt Status Changed To: Hospital Disposition Of: Inpatient - Admit Certification Admit to Inpatient:: After my assessment, the patient will require hospitalization for at least two midnights. This is because of the severity of symptoms shown, intensity of services needed, and/or the medical risk in this patient being treated as an outpatient. - POA Present On Arrival: None
[2018-02-20 00:15] LABS: BASO # 0.1 K/uL (0.0-0.2); BASO % 1.3 % (0.0-2.0); EOS # 0.3 K/uL (0.0-0.7); EOS % 3.6 % (0.0-4.0); HEMOGLOBIN 14.5 g/dL (12.0-18.0); LYMPH # 3.4 K/uL (1.0-4.3); LYMPH % 46.7 % (20.0-40.0); MEAN CELL VOLUME 90.6 fl (80.0-94.0); MEAN CORPUSCULAR HEMOGLOBIN 30.5 pg (27.0-31.0); MEAN CORPUSCULAR HGB CONC 33.7 g/dL (33.0-37.0); MEAN PLATELET VOLUME 7.4 fl (7.2-11.7); MONO # 0.7 K/uL (0.0-0.8); MONO % 9.6 % (0.0-10.0); NEUT # 2.8 K/uL (1.8-7.0); NEUT % 38.8 % (50.0-75.0); NRBC % 0.1 % (0.0-0.0); RBC 4.76 Mil/uL (4.40-5.90); RED CELL DISTRIBUTION WIDTH 13.8 % (11.5-14.5); WHITE BLOOD COUNT 7.3 K/uL (4.8-10.8)
[2018-02-20 00:24] LABS: ACETAMINOPHEN < 10.0 ug/ml (10.0-30.0); SALICYLATE < 1.0 mg/dl
[2018-02-20 00:26] LABS: ALB/GLOB RATIO 1.4 (1.0-2.1); ALBUMIN 4.7 g/dL (3.5-5.0); ALT/SGPT 44 U/L (21-72); AST/SGOT 48 U/L (17-59); BLOOD UREA NITROGEN 15 mg/dl (9-20); CALCIUM 8.9 mg/dL (8.4-10.2); GFR NON-AFRICAN AMERICAN > 60
[2018-02-20 01:28] LABS: BARBITURATES, UR NEGATIVE (NEGATIVE); BENZODIAZEPINES, UR NEGATIVE (NEGATIVE); OPIATES, UR NEGATIVE (NEGATIVE); PHENCYCLIDINE, UR NEGATIVE (NEGATIVE)
[2018-02-20 02:29] VITALS: O2SAT 97
[2018-02-20] MEDS ORDERED: Magnesium Hydroxide Susp 30 ml UD PO PRN (02:32)
[2018-02-20] MEDS ORDERED: Alum-Mag Hydrox-Simethicone Susp (30 mL) PO PRN (02:32)
--- NOTE | 2018-02-20 03:29 | PCM.BM ---
<Zara Burr - Last Filed: 02/20/18 03:27> Treatment Plan Problems - Problems identified on initial assessmt Self Harm Date Initiated: 02/20/18 Time Initiated: 03:27 Assessment reference: NA Status: Active Altered Sleep Patterns Date Initiated: 02/20/18 Time Initiated: 03:28 Assessment reference: NA Status: Active Medication Nonadherence Date Initiated: 02/20/18 Time Initiated: 03:28 Assessment reference: NA Status: Active Less than optimal Nutrition Date Initiated: 02/20/18 Time Initiated: 03:29 Assessment reference: NA Status: Active Hopelessness/Helplessness Date Initiated: 02/20/18 Time Initiated: 03:30 Assessment reference: NA Status: Active Treatment assets and liabiliti Patient Assests: cooperative, self-reliant, ADL independent, physically healthy, negotiates basic needs, cognitively intact Patient Liabilities: live alone, financial problems, poor support system, substance abuse - Milieu Protocol Maintain good personal hygiene: daily Encourage regular showers, other Remind patient to perform daily oral care (prn), other Assist patient to perform ADL's (prn) Conduct patient checks and document Observation sheet: Q15 minutes Maintain personal safety: every shift Educate patient to report safety concerns to staff, every shift Monitor environment for contraband/sharps Medication safety: Monitor for expected outcome, potential side effects: every shift, Assess barriers to learning: every shift, Assess readiness for medication education: every shift <Javon Joshi - Last Filed: 02/21/18 15:27> Family Contact Family involvement: Famliy/SO not involved Family contact: Patient declines to allow family contact at present Family contact name: Pt denied. - Goals for Treatment Patient goals for treatment: Pt reported he would like to learn healthy coping skills so he can better handle his depression and alcohol consumption. Discharge/Continuing Care - Education Needs Education Needs: Patient Medication, Patient Diagnosis/Disease Process, Patient Coping Skills, Patient Placement options, Patient Community resources, Patient Aftercare Safety Plan - Discharge Discharge Criteria: Tolerates medication w/o severe side effects, Free of Suicidal thoughts, Free of agitation, Normal sleep pattern, Ability to care for self, No longer exhibiting s/s of withdrawal, Reduction of target symptoms Discharge to:: Half-Way, Substance Abuse Rehab <Lanette Moore - Last Filed: 02/22/18 15:23> Discharge/Continuing Care - Treatment Team Participation Patient/Family/SO Statement: 02/22/18 15:23 Pt. attended tx team this morning to discuss progress on 3NP and tx goals. Pt. reported significant improvement in sxs of depression since admission. Pt. expressed remorse regarding non-adherence with mental health services ad 12 step program leading to ETOH relapse. Insight into precursors to hospitalization is fair. Pt. receptive to feedback regarding risks of ongoing substance abuse and benefits of maintained sobriety. Importance of adherence with outpatient mental health services discussed. Pt. expressed motivation for tx with hopes to return to [facility] (was referred ; did not begin program) and to AA. Pt. discharge focused. Importance of proper stabilization prior to discharge to ensure safet y/functioning in the community discussed. Benefits of completing tx on 3NP to secure aftercare emphasized. Discussed with Family/SO: No Was Patient/Family/SO present at Treatment Team Meeting: Yes <Karl Cohn - Last Filed: 02/23/18 11:46> - Diagnosis (1) Alcohol abuse Status: Acute Interventions: 02/23/18 11:46 motivational therapy
--- NOTE | 2018-02-20 09:21 | RAD ---
Date of service: 02/20/2018 HISTORY: clearance COMPARISON: Comparison chest 12/13/2017 FINDINGS: LUNGS: No active pulmonary disease. PLEURA: No significant pleural effusion identified, no pneumothorax apparent. CARDIOVASCULAR: No aortic atherosclerotic calcification present. Normal cardiac size. No pulmonary vascular congestion. OSSEOUS STRUCTURES: No significant abnormalities. VISUALIZED UPPER ABDOMEN: Normal. OTHER FINDINGS: None. IMPRESSION: No active disease.
--- NOTE | 2018-02-20 10:58 | PCM.PSYCH ---
Initial Psychiatric Evaluation - Initial Psychiatric Evaluation Type of Admission: Voluntary Legal Status: Capacity Chief Complaint (in patient's own words): Suicidal Ideation Patient's Reaction to Hospitalization: HPI: 37 yo male w/ h/o Alcohol Use Disorder, recently discharged from [facility] program on Thursday, relapsed on alcohol (drinks 14-18 beers/day), presents w/ worsening depression, hopelessness, sleep/appetite disturbances and suicidal ideation to hang himself. Patient is able to contract for safety at this time. PPHx: Alcohol Use Disorder; Mood Disorder; Recently treated w/ Trileptal, Remeron and Bupropion PMHx: Denies medical issues ALL: Amoxicillin SHx: Homeless; +Alcohol Abuse, denies cig/drug use; DCP&P case FHx: Brother completed suicide almost 1 yr ago Current Medications: Active Medications Generic Name Dose Route Start Last Admin Trade Name Freq PRN Reason Stop Dose Admin Acetaminophen 650 mg 02/20/18 02:32 Tylenol 325mg Tab PO Q4 PRN Pain, moderate (4-7) Al Hydrox/Mg Hydrox/Simethicone 30 ml 02/20/18 02:32 Maalox Plus 30 Ml PO Q4 PRN Dyspepsia Chlordiazepoxide 25 mg 02/20/18 02:40 Librium PO Q4H PRN Withdrawl Diphenhydramine HCl 50 mg 02/20/18 02:39 Benadryl PO HS PRN Sleep Folic Acid 1 mg 02/20/18 09:00 Folic Acid PO DAILY AURELIA Lorazepam 2 mg 02/20/18 02:32 Ativan IM Q6 PRN Anxiety/Agitation,Unable PO Lorazepam 1 mg 02/20/18 02:32 Ativan PO Q6 PRN Anxiety/Agitation Magnesium Hydroxide 30 ml 02/20/18 02:32 Milk Of Magnesia PO HS PRN Constipation Multivitamins/Minerals 1 tab 02/20/18 09:00 Therapeutic-M Tab PO DAILY AURELIA Thiamine HCl 100 mg 02/20/18 09:00 Vitamin B1 Tab PO DAILY AURELIA Past Psychiatric History - Past Psychiatric History Pertinent Medical Hx (Current Medical&Sleep Prob, Allergies): Allergies Allergy/AdvReac Type Severity Reaction Status Date / Time amoxicillin Allergy URTICARIA Verified 02/19/18 21:04 Bupropion HCl [Bupropion HCl Xl] 75 mg PO DAILY 02/20/18 Mirtazapine [Remeron] 15 mg PO HS 02/20/18 OXcarbazepine [Trileptal] 300 mg PO BID 02/20/18 Review of Systems - Psychiatric Psychiatric: Abnormal Sleep Pattern, Anxiety, Behavioral Changes, Change in Appetite, Depression, Difficulty Concentrating, Irritability, Mood Swings, Suicidal Ideation Mental Status Examination - Personal Presentation Personal Presentation: Looks older than stated age - Affect Affect: Constricted, Depressed - Motor Activity Motor Activity: Calm - Reliability in Providing Information Reliability in Providing Information: Fair - Speech Speech: Organized, Coherent - Mood Mood: Depressed, Anxious - Formal Thought Process Formal Thought Process: No Impairment - Hallucinations/Delusions Additional comments: No AH/VH/paranoia/delusions - Obsessions/Compulsions Obsessions: No Compulsions: No - Cognitive Functions Orientation: Person, Place, Situation, Time Sensorium: Alert Attention/Concentration: Attentive Estimate of Intelligence: Average Judgement: Intact, as evidence by: Insight regarding need for hospitalization Memory: Recent intact, as evidence by: Ability to recall events of the day, Remote intact, as evidenced by: Abilit to recall sig. life events, Remote intact, as evidenced by: Ability to recall historical events - Risk Risk: Suicidal, Diminished functioning - Strength & Assets Inventory Strength & Assets Inventory: Cooperative - Limitations Limitations: Other (Homelessness, Poverty) DSM 5 DX - DSM 5 DSM 5 Diagnosis: Alcohol Induced Mood Disorder; Alcohol Use Disorder; r/o MDD vs Bipolar Disorder - Recommended/Plan of Treatment Treatment Recommendations and Plan of Treatment: Alcohol Induced Mood Disorder; Alcohol Use Disorder; r/o MDD vs Bipolar Disorder -Admit to psychiatry unit -Individual and group therapy -Psychoeducation -Restart Wellbutrin and Trileptal -Ativan to prevent ETOH withdrawal -Medicine consult -Disposition planning Projected ELOS: 5-8 days Discharge Plan and Discharge Criteria: Discharge when patient is psychiatrically stable - Smoking Cessation Smoking Cessation Initiated: No Reason for not providing: Not indicated
[2018-02-20] MEDS: Multivitamin With Minerals Tab PO SCH (11:18)
--- NOTE | 2018-02-21 08:13 | PCM.PYCHPN ---
Psychiatric Progress Note - Psychiatric Progress Note Patient seen today, length of contact: Pt evaluated, case discussed w/ team, chart reviewed Patient Chief Complaint: Depression Problems Identified/Issues Discussed: Patient continue to feel depressed w/ constricted affect, low energy, poor sleep and appetite. He spends most of the day in his bed and does not want to interact with others. No current signs/symptoms of ETOH withdrawal. No adverse effects to medications reported. No AH/VH/SI/HI. Medication Change: No Medical Record Reviewed: Yes Consults ordered or reviewed: Medicine consult Mental Status Examination - Cognitive Function Orientation: Person, Place, Situation, Time Memory: Intact Attention: WNL Concentration: WNL Association: WNL Fund of Knowledge: WN Decription of patient's judgement and insights: Improving I/J - Mood Mood: Depressed, Anxious - Affect Affect: Constricted, Depressed - Formal Thought Process Formal Thought Process: No Impairment Psychotic Thoughts and Behaviors: No AH/VH/paranoia/delusions - Suicidal Ideation Suicidal Ideation: No - Homicidal Ideation Homicidal Ideation: No Goal/Treatment Plan - Goal/Treatment Plan Need for Continued Stay: Remain at risks for inpatient hospitalization, Severe depression anxiety, Discharge may exacerbated symptoms Progress Toward Problem(s) and Goals/Treatment Plan: Alcohol Induced Mood Disorder; Alcohol Use Disorder; r/o MDD vs Bipolar Disorder -Individual and group therapy -Psychoeducation -Continue Wellbutrin and Trileptal -Ativan to prevent ETOH withdrawal; will taper gradually -Medicine consult -Disposition planning
[2018-02-21 08:46] LABS: T4 5.19 ug/dl (5.5-11.0)
[2018-02-21] MEDS: Multivitamin With Minerals Tab PO SCH (09:12)
--- NOTE | 2018-02-21 13:35 | CP.PCM.CON ---
History of Present Illness - History of Present Illness History of Present Illness: 37 yo male with history of alcohol abuse admitted to psyche unit because worsening depression and suicidal ideation. Review of Systems - Review of Systems All systems: reviewed and no additional remarkable complaints except (aside from those mentioned above, 12 point system review were negative by me) Past Patient History - Past Medical History & Family History Past Medical History?: Yes - Past Social History Smoking Status: Never Smoked Chewing Tobacco Use: No Cigar Use: No Alcohol: > 2 Drinks/Day Drugs: Denies - CARDIAC Hx Cardiac Disorders: No Hx Hypertension: No - PULMONARY Hx Tuberculosis: No - NEUROLOGICAL Hx Seizures: Yes - HEENT Hx HEENT Problems: No - RENAL Hx Chronic Kidney Disease: No - ENDOCRINE/METABOLIC Hx Endocrine Disorders: No - HEMATOLOGICAL/ONCOLOGICAL Hx Cancer: No Hx Human Immunodeficiency Virus (HIV): No - INTEGUMENTARY Hx Dermatological Problems: No - MUSCULOSKELETAL/RHEUMATOLOGICAL Hx Musculoskeletal Disorders: No Hx Falls: No - GASTROINTESTINAL Hx Gastrointestinal Disorders: No - GENITOURINARY/GYNECOLOGICAL Hx Sexually Transmitted Disorders: No - PSYCHIATRIC Hx Anxiety: Yes Hx Bipolar Disorder: Yes Hx Depression: Yes - SURGICAL HISTORY Hx Surgeries: No - ANESTHESIA Hx Anesthesia: No Hx Anesthesia Reactions: No Hx Malignant Hyperthermia: No Meds Allergies/Adverse Reactions: Allergies Allergy/AdvReac Type Severity Reaction Status Date / Time amoxicillin Allergy URTICARIA Verified 02/19/18 21:04 - Medications Medications: Current Medications Acetaminophen (Tylenol 325mg Tab) 650 mg PO Q4 PRN PRN Reason: Pain, moderate (4-7) Al Hydrox/Mg Hydrox/Simethicone (Maalox Plus 30 Ml) 30 ml PO Q4 PRN PRN Reason: Dyspepsia Bupropion HCl (Wellbutrin) 75 mg PO DAILY [facility] Last Admin: 02/21/18 09:11 Dose: 75 mg Diphenhydramine HCl (Benadryl) 50 mg PO HS PRN PRN Reason: Sleep Folic Acid (Folic Acid) 1 mg PO DAILY [facility] Last Admin: 02/21/18 09:12 Dose: 1 mg Lorazepam (Ativan) 2 mg IM Q6 PRN PRN Reason: Anxiety/Agitation,Unable PO Lorazepam (Ativan) 1 mg PO Q8 [facility] Last Admin: 02/21/18 09:12 Dose: 1 mg Lorazepam (Ativan) 1 mg PO Q4 PRN PRN Reason: Alcohol Withdrawal Magnesium Hydroxide (Milk Of Magnesia) 30 ml PO HS PRN PRN Reason: Constipation Multivitamins/Minerals (Therapeutic-M Tab) 1 tab PO DAILY [facility] Last Admin: 02/21/18 09:12 Dose: 1 tab Oxcarbazepine (Trileptal) 300 mg PO BID [facility] Last Admin: 02/21/18 09:12 Dose: 300 mg Thiamine HCl (Vitamin B1 Tab) 100 mg PO DAILY [facility] Last Admin: 02/21/18 09:12 Dose: 100 mg Trazodone HCl (Desyrel) 50 mg PO HS PRN PRN Reason: Insomnia Physical Exam - Constitutional Appears: No Acute Distress - Head Exam Head Exam: ATRAUMATIC - Eye Exam Eye Exam: absent: Scleral icterus - ENT Exam ENT Exam: Mucous Membranes Moist - Neck Exam Neck exam: Negative for: Meningismus - Respiratory Exam Respiratory Exam: absent: Rales, Rhonchi, Wheezes, Respiratory Distress - Cardiovascular Exam Cardiovascular Exam: REGULAR RHYTHM, +S1, +S2 - GI/Abdominal Exam GI & Abdominal Exam: Soft. absent: Tenderness - Rectal Exam Rectal Exam: Deferred - Extremities Exam Extremities exam: Negative for: pedal edema - Back Exam Back exam: NORMAL INSPECTION - Neurological Exam Neurological exam: Alert, Oriented x3 - Psychiatric Exam Psychiatric exam: Normal Affect - Skin Skin Exam: Dry, Intact Results - Vital Signs Recent Vital Signs: Last Vital Signs Temp 98.5 F 02/21/18 09:14 Pulse 86 02/21/18 09:14 Resp 18 02/21/18 09:14 BP 117/71 02/21/18 09:14 Pulse Ox 97 02/20/18 02:28 - Labs Result Diagrams: 02/19/18 22:10 02/19/18 22:10 Labs: Laboratory Results - last 24 hr 02/21/18 02/21/18 02/21/18 07:34 07:34 07:34 Hemoglobin A1c 5.2 Triglycerides 263 H Cholesterol 224 H LDL Cholesterol Direct 136 H HDL Cholesterol 63 Thyroxine (T4) 5.19 L TSH 3rd Generation 2.35 Assessment & Plan (1) Depression Status: Acute Comment: psyche is managing (2) Alcohol abuse Status: Acute
[2018-02-22] MEDS: Multivitamin With Minerals Tab PO SCH (09:42)
--- NOTE | 2018-02-22 14:22 | PCM.PYCHPN ---
Psychiatric Progress Note - Psychiatric Progress Note Patient seen today, length of contact: Pt evaluated, case discussed w/ team, chart reviewed Patient Chief Complaint: I relapsed and I am upset because I worry about my daughter Problems Identified/Issues Discussed: pt evaluated with treatment team, presenting with depressed mood and affect, guarded, tends to isolate himself in his room, not attending groups, discussed with patient increasing dose of wellbutrin for depressed mood , motivational therapy provided in reference to alcohol use, patient encouraged to attend groups pt denied any current suicidal or homicidal ideation denied command hallucinations DSM 5 Symptoms Update: alcohol induced mood disorder alcohol use disorder depression Medication Change: Yes (increase wellbutrin) Medical Record Reviewed: Yes Mental Status Examination - Cognitive Function Orientation: Person, Place, Situation, Time Memory: Intact Attention: WNL Concentration: WNL Association: WNL Fund of Knowledge: WNL - Mood Mood: Depressed, Anxious - Affect Affect: Constricted, Depressed - Formal Thought Process Formal Thought Process: No Impairment - Suicidal Ideation Suicidal Ideation: No - Homicidal Ideation Homicidal Ideation: No Goal/Treatment Plan - Goal/Treatment Plan Need for Continued Stay: Remain at risks for inpatient hospitalization, Severe depression anxiety, Discharge may exacerbated symptoms Progress Toward Problem(s) and Goals/Treatment Plan: decrease ativan and monitor pt for symptoms and signs of alcohol withdrawal increase wellbutrin to 150mg CBT motivational and group therapy
[2018-02-23] MEDS: Multivitamin With Minerals Tab PO SCH (09:39)
[2018-02-23] MEDS: buPROPion SR 150 MG TABLET PO SCH (09:39)
--- NOTE | 2018-02-23 12:01 | PCM.PYCHPN ---
Psychiatric Progress Note - Psychiatric Progress Note Patient seen today, length of contact: Pt evaluated, case discussed w/ team, chart reviewed Patient Chief Complaint: I am willing to restart the program for my daughter Problems Identified/Issues Discussed: pt evaluated , reported mood less depressed , no reported side effects with the increase in wellbutrin , pt motivated to restart intensive outpatient treatment pt denied any current suicidal or homicidal ideation denied command hallucinations DSM 5 Symptoms Update: alcohol induced mood disorder with depressive features depression Medication Change: Yes (discontinue ativan) Medical Record Reviewed: Yes Mental Status Examination - Cognitive Function Orientation: Person, Place, Situation, Time Memory: Intact Attention: WNL Concentration: WNL Association: WNL Fund of Knowledge: WNL - Mood Mood: Anxious - Affect Affect: Constricted, Depressed - Formal Thought Process Formal Thought Process: No Impairment - Suicidal Ideation Suicidal Ideation: No - Homicidal Ideation Homicidal Ideation: No Goal/Treatment Plan - Goal/Treatment Plan Need for Continued Stay: Remain at risks for inpatient hospitalization, Severe depression anxiety, Discharge may exacerbated symptoms Progress Toward Problem(s) and Goals/Treatment Plan: discontinue ativan wellbutrin sr 150mg CBT motivational and group therapy
[2018-02-24] MEDS: Multivitamin With Minerals Tab PO SCH (08:37)
[2018-02-24] MEDS: buPROPion SR 150 MG TABLET PO SCH (08:38)
[2018-02-24 09:41] VITALS: BP 132/74; PULSE 86; RESP 17; TEMP 96.9
--- NOTE | 2018-02-24 11:19 | PCM.PYCHDC ---
Mental Status Examination - Mental Status Examination Orientation: Person, Place, Situation Memory: Intact Mood: Neutral Affect: Broad Speech: Appropriate Attention: WNL Concentration: WNL Association: WNL Fund of Knowledge: WNL Formal Thought Process: No Impairment Description of patient's judgement and insight: partial insight, poor judgment Psychotic Thoughts and Behaviors: pt denied perceptual disturbances, non elicited Current Homicidal Ideation?: No Discharge Summary - Discharge Note Reason for Hospitalization: 37 yo male w/ h/o Alcohol Use Disorder, recently discharged from [facility] on Thursday, relapsed on alcohol (drinks 14-18 beers/day), presents w/ worsening depression, hopelessness, sleep/appetite disturbances and suicidal ideation to hang himself. Patient is able to contract for safety at this time. Consultations:: List each consultation separately and include: 1. Reason for request. 2. Findings. 3. Follow-up Summary of Hospital Course include:: 1. Description of specific treatment plan utilized for patients during their course of treatmen. 2. Summarize the time- course for resolution of acute symptoms and/or regressed behaviors. 3. Describe issues identified and worked on during hospitalization. 4. Describe medication utilized. 5. Describe medical problems identified and treated. 6. Reassessment of suicide risk Summary of Hospital Course: pt on admission was started on alcohol withdrawal protocol , monitored for symptoms and signs of alcohol withdrawal pt was started on wellbutrin for depression motivational therapy was provided in reference to alcohol use pt was compliant with medications, no reported side effects on discharge mental status was stable, denied any current suicidal or homicidal ideaton denied perceptual disturbances follow up arranged by social media executive at [facility] - Diagnosis (1) Alcohol abuse Current Visit: Yes Status: Acute - Final Diagnosis (DSM 5) Condition upon Discharge: STABLE Disposition: HOME/ ROUTINE - Antipsychotic Medications Pt discharged on 2 or more routine antipsychotic medications: No
== END 2018-02-24 14:25 | disposition home or self-care (01) | DRG 750 ==
LOC: H.ER 20:15 → H.ERHOLD 02-20 00:39 → H.PSYCH 02-20 02:46
PROVIDERS: ADMIT Psychiatry & Neurology Psychiatry; ATTEND Psychiatry & Neurology Psychiatry
PROC: HZ52ZZZ Individual Psychotherapy for Substance Abuse Treatment, Cognitive-Behavioral (ICD-10-PCS; principal; 2018-02-20)
PROC: GZHZZZZ Group Psychotherapy (ICD-10-PCS; 2018-02-20)
PROC: GZ58ZZZ Individual Psychotherapy, Cognitive-Behavioral (ICD-10-PCS; 2018-02-20)
DX: F10.14 Alcohol abuse with alcohol-induced mood disorder (principal); R56.9 Unspecified convulsions; F10.129 Alcohol abuse with intoxication, unspecified; Y90.6 Blood alcohol level of 120-199 mg/100 ml; F31.9 Bipolar disorder, unspecified; F41.9 Anxiety disorder, unspecified; R45.851 Suicidal ideations; Z59.0 Homelessness